=== PATIENT | female | born 1950 | race Caucasian/White ===

== ENCOUNTER 2016-05-31 02:21 | Emergency (ER) | payer OTHER ==
[~2016-05-31] VITALS: Ht 170.2 cm; Wt 79.5 kg
[2016-05-31 02:27] VITALS: PULSE 179; RESP 18; O2SAT 99
[2016-05-31] MEDS ORDERED: Adenosine 3 mg/mL 2 mL Inj IVPUSH ONE ×2 (02:40→02:55)
--- NOTE | 2016-05-31 02:43 | ED.REPORT ---
HPI-Chest Pain 40 and Over Date of Service May 31, 2016 ED Provider: Severiano Oglesby MD Patient is a 65 year old female with recent right knee replacement 3 days ago who presents to the ED complaining of a rapid heart rate since 10:30pm this evening. The patient states that she has previously had palpitations briefly, but only when exercising or when she was dehydrated. Patient has never experienced a persistent rapid heart rate of this nature. She denies calf tenderness, shortness of breath, or chest pain. 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 The patient takes 325mg aspirin daily and she was on Warfarin for several days following surgery. She denies a history of hypertension, hyperlipidemia, or diabetes mellitus. Patient does not smoke cigarettes or marijuana. Nursing Notes Stated Complaint: ELEVATED HEART RATE Chief Complaint: Dysrhythmia/Cardiac Nursing Notes Reviewed: Yes Allergies: Coded Allergies: No Known Allergies (Unverified , 05/31/16) Scheduled Metoprolol Tartrate (Metoprolol Tartrate) 25 Mg Tablet 25 MG PO BID General Time Seen by MD: 02:27 Chief Complaint Other (rapid heart rate) Hx Obtained From: Patient Arrived By: Walk-in Sudden in Onset?: No Onset Occurred: 5 - 8 hours ago (10:30pm) Symptom Duration: Since onset Severity: Current: No pain currently Severity: Maximum: No pain Recent Healthcare: No recent doctor visit, No recent hospitalization Similar Sx Previous: No Past Medical History Past Medical History none reported Denies: Diabetes mellitus, Hyperlipidemia, Hypertension Past Surgical History right knee replacement Smoking History Never Smoker Social History Alcohol Use: "Social" (rare) Drug Use: Denies drug use Other Social History: Good social support, Local resident Ambulatory Status Independent Review of Systems Respiratory: Denies: Non-productive cough, Shortness of breath Cardiovascular: Reports: Palpitations, Denies: Chest pain Musculoskeletal: Reports: Extremity swelling, Denies: Extremity pain Complete sys rev & neg: except as marked. Physical Exam Initial Vital Signs Vital Signs (First) Date Time Temp Pulse Resp B/P Pulse Ox O2 Delivery O2 Flow Rate FiO2 05/31/16 02:27 36.4 179 18 99 Room Air 05/31/16 03:00 108/66 Initial VS: Reviewed, Vital signs abnormal Head / Eyes: Atraumatic, Normocephalic, PERRL ENT: Conjunctiva normal, No scleral icterus Neck: Supple, Full range of motion Skin: Warm, Dry, No cyanosis Neurologic: Alert, Oriented, Nonfocal Psychiatric: Mood/affect normal, Behavior normal, Normal thought content General/Constitutional: Awake, Alert, No acute distress Respiratory / Chest: Breath sounds NL, Breath sounds = bilat, No respiratory distress, No rales, No rhonchi, No wheezing Cardiovascular: Regular rhythm, Heart sounds NL, No murmurs Heart Rate / Rhythm: Positive: Tachycardia Abdomen: Soft, Non-tender, No guarding, No rebound Lower Extremity / Pelvis / MS: Neurologic intact, Vascular intact Right knee and calf is swollen. No pitting edema. No calf or medial thigh tenderness. Interpretation & Diagnostics Lab Results Interpretation Result Diagram: 05/31/16 0245 05/31/16 0245 Test 05/31/16 02:45 White Blood Count 10.0th/mm3 (3.8-10.1) Red Blood Count 3.86mil/mm3 (3.90-5.20) Hemoglobin 11.3g/dL (12.0-15.6) Hematocrit 34.1% (35.0-46.0) Mean Corpuscular Volume 88.3fL (81-100) Mean Corpuscular Hemoglobin 29.3pg (27.0-35.0) Mean Corpuscular Hemoglobin Concent 33.1% (32.0-37.0) Red Cell Distribution Width 13.1% (12.3-15.4) Platelet Count 321bil/L (150-400) Neutrophils (%) (Auto) 56.1% (40-74) Lymphocytes (%) (Auto) 33.2% (14-46) Monocytes (%) (Auto) 8.3% (4-12) Eosinophils (%) (Auto) 1.9% (0-5) Basophils (%) (Auto) 0.3% (0-3) Sodium Level 134mEq/L (134-144) Potassium Level 4.0mEq/L (3.5-5.2) Chloride Level 95mEq/L (97-108) Carbon Dioxide Level 24mmol/L (18-29) Blood Urea Nitrogen 11mg/dL (8-27) Creatinine 0.79mg/dL (0.57-1.00) Estimat Glomerular Filtration Rate 105mL/min (>59) Glucose Level 160mg/dL (60-99) Calcium Level 9.6mg/dL (8.5-10.1) Magnesium Level 2.0mg/dL (1.6-2.6) Total Bilirubin 0.3mg/dL (0.0-1.2) Aspartate Amino Transf (AST/SGOT) 26U/L (0-50) Alanine Aminotransferase (ALT/SGPT) 19U/L (0-32) Alkaline Phosphatase 87U/L (25-165) Troponin T < 0.010ug/L (0.0-0.011) Total Protein 6.9g/dL (6.4-8.4) Albumin 3.8g/dL (3.4-5.0) Thyroid Stimulating Hormone (TSH) 1.560uIU/mL (0.450-4.500) Hold Barraza Top Tube Received (Received) Lab Results Interpretation: Mild anemia, negative troponin ECG Interpretation ECG Interpretation: Supraventricular tachycardia, Rate 173 ST depression, probably rate related Time: 02:39 Interpreted by: ED physician ECG Interpretation: Sinus rhythm, Rate 94 Low voltage, precordial leads Time: 05:16 Interpreted by: ED physician CT Chest Interpretation Impression: No evidence of PE. Radiologist: Johnny Henley MD 05/31/2016 - 5:01:50 AM PDT Study type: CT pulm angiogram Interpretation / Wet Read by: Interpret - Radiologist Procedures SVT Treatment Time: 02:52 Procedure Performed by: ED physician Consent / Timeout / Setup: Consent from patient, Time-out performed, Oxygen administered, Pulse oximeter applied, school bus monitor applied Bearing Down - Valsalva: Unsuccessful, Patient still in SVT Adenosine IV Attempt # 1: Dose 6mg IVP, Unsuccessful, Patient still in SVT Adenosine IV Attempt # 2: Dose 12mg IVP, Patient in sinus tach (with occasional PVCs) Post-Procedure: Complete relief, No complications, Tolerated procedure well, Patient stable Re-Eval/Medical Decision Med Decision/Clinical Course 65-year-old female who presented with heart rate of around 180 for several hours. She has had short-lived episodes of this in the past but never documented PSVT and never requiring treatment. She is recently had a right knee surgery and has some normal postoperative swelling of that leg. She was initially given adenosine 6 mg IV without conversion. Subsequently she was given adenosine 12 mg IV with conversion to sinus tachycardia at 110 220 bpm. She subsequently reverted to PSVT at around 180 bpm. Because she is postop, at high risk for pulmonary emboli, and has a tachyarrhythmia CT scan of the chest was done with PE protocol which was negative. Her case was discussed with Dr. Rios. She was given IV metoprolol with conversion to normal sinus rhythm. She will be discharged home on 15 day supply of metoprolol to follow up with her primary specifications writer. Time of Eval: 02:52 Re-Evaluation/Progress Note: Adenosine administered to the patient. 6mg did not convert the patient. 12mg dose administered. Time of Eval: 02:58 Patient Status: Condition improved Re-Evaluation/Progress Note: Patient is now in sinus tachycardia with frequent PVCs. Time of Eval: 03:07 Re-Evaluation/Progress Note: Patient is now back in SVT. Modified valsalva was tried and was unsuccessful. Will consult cardiology. Time of Eval: 03:24 Re-Evaluation/Progress Note: Informed the patient of the conversation with cardiology. She will have a CT Angio of her chest and be given Metoprolol. This premedication should help for subsequent conversion. Time of Eval: 05:06 Patient Status: Condition improved Re-Evaluation/Progress Note: Rechecked the patient. She converted after she was given Metoprolol. Repeat EKG in progress. CT scan of her chest was negative. Time of Eval: 05:20 Patient Status: Condition improved Re-Evaluation/Progress Note: Repeat EKG confirmed NSR. Patient understands and agrees with the plan to be discharged home. Discharge instructions and follow-up discussed. All questions were addressed. Return to the ED warnings given. Consultation : Referral / Consult Name: Johnathon Rios MD Consulted With: Cardiology Call Returned at: 03:17 Note: Spoke with Dr. Rios, specifications writer, about the patient's EKG changes and PSVT. Wait for the patient's labs and order a CT Angio to rule out a PE. Then give Metoprolol and try given adenosine again. Counseled Regarding: Diagnosis, Lab results, Need for follow-up, When/why to return to ED Discharge & Departure Primary Impression: SVT (supraventricular tachycardia) Disposition: Home Discharge Condition All VS Reviewed: Yes Condition: Stable Patient Instructions: Supraventricular Tachycardia (ED) Additional Instructions: Paroxysmal supraventricular tachycardia, converted initially with adenosine, followed by recurrence and then treatment with metoprolol. Recommend you continue metoprolol 25 mg twice a day. Follow-up with your regular doctor in the next 2 or 3 days for further evaluation of this situation. Drink plenty of fluids. There is no evidence of blood clot in the lungs on CT scan. Referrals: OTHER,PHYSICIAN Crit Care Except Billable Proc Time Spent: 30-74 minutes Services Performed: Patient management by me, Time spent at bedside, Reviewing test results, Reviewing imaging, Discussing patient care, Documentation in record, Time with fam/surrogate Critical Care Notes: 65-year-old female with PSVT at 180 bpm requiring multiple IV medications for conversion. She was also evaluated for PE which was ruled out. [place] Attestation Portions of this note were transcribed by Alessandra Canales. I, Dr. Oglesby personally performed the history, physical exam and medical decision-making; I reviewed and confirmed the accuracy of the information in the transcribed note. Signed by: Juany Ashley, 05/31/2016 0535 copies to: AMIE,PHYSICIAN Severiano Oglesby MD May 31, 2016 02:43 Alessandra Canales May 31, 2016 02:56
[2016-05-31 03:00] VITALS: BP 108/66; PULSE 174; RESP 14; O2SAT 97
[2016-05-31 03:00] LABS: BASOPHILS % (AUTO) 0.3 % (0-3); EOSINOPHILS % (AUTO) 1.9 % (0-5); MONOCYTES % (AUTO) 8.3 % (4-12); Mean Corpuscular Hemoglobin 29.3 pg (27.0-35.0); Mean Corpuscular Volume 88.3 fL (81-100); NEUTROPHILS % (AUTO) 56.1 % (40-74); Platelet Count 321 bil/L (150-400)
[2016-05-31] MEDS ORDERED: MeTOProlol 1 mg/mL 5 mL Inj IVPUSH ONE (03:30)
[2016-05-31 04:00] VITALS: BP 98/66; PULSE 94; RESP 18; O2SAT 97
[2016-05-31 04:07] LABS: TROPONIN T < 0.010 ug/L (0.0-0.011)
[2016-05-31 04:49] VITALS: BP 108/66; PULSE 174; RESP 14; O2SAT 97
[2016-05-31 04:52] VITALS: BP 114/75; PULSE 90; RESP 11; O2SAT 98
[2016-05-31] MEDS ORDERED: METO25TA6 PO (05:22)
[2016-05-31 05:39] VITALS: BP 114/75; PULSE 90; RESP 11; O2SAT 98
--- NOTE | 2016-05-31 09:18 | DRSVH ---
PROCEDURE: CT ANGIO CHEST PULMONARY EMBOLISM ([id number]) INDICATIONS: postop, tachycardia, R/O PE TECHNIQUE: After the administration of intravenous contrast, 2 mm thick sections acquired from the pulmonary api am[facility] to the posterior costophrenic angles. 3-dimensional maximum intensity projection (MIP) coronal a nd sagittal reformats were then acquired through the thorax. For radiation dose reduction, the follo wing was used: automated exposure control, adjustment of mA and/or kV according to patient size. COMPARISON: None. FINDINGS: Image quality: Excellent. Pulmonary arteries: Pulmonary arteries are normal in size, and demonstrate no intraluminal filling d efects to suggest central pulmonary embolism. Lungs and pleura: Lungs are clear. There is mild bibasilar scattered atelectasis No pleural effusion s or pneumothorax. Central and peripheral airways are patent. Mediastinum: Heart size is normal, without pericardial effusion. No mediastinal or hilar adenopathy . Thoracic aorta is normal in caliber and enhancement. Esophagus is normal in caliber, without hiat al hernia. Bones and chest wall: Bilateral breast prostheses which are asymmetric in size, right larger than le ft. No suspicious bony lesions. Ribs and thoracic spine appear intact throughout. Thyroid gland wit hin normal limits. No axillary or supraclavicular adenopathy. Presumed vertebral body hemangioma im age 49 series 6 with internal trabeculations. Abdomen: Low-density presumed hepatic cyst in the dome of the liver image 91. Subcentimeter hypodense lesion in the left lobe on image 113, too small to characterize definitively.. Additional 1 cm hypod ense liver lesion in the left lobe on image 108 also technically indeterminate. IMPRESSION: No pulmonary embolism. No acute consolidation. Dictated by: Wander Angeles M.D. on 05/31/2016 at 9:13 Approved by: Wander Angeles M.D. on 05/31/2016 at 9:17
== END 2016-05-31 05:24 | disposition home or self-care (01) ==
LOC: SED 02:21
DX: I47.1 Supraventricular tachycardia (principal)
CPT/HCPCS: 36415; 71275; 80053; 83735; 84443; 84484; 85025; 93005; 96374; 96375; 99291; J0153; Q9967